=== PATIENT | female | born 1985 | race Caucasian/White ===

== ENCOUNTER 2021-10-12 22:34 | Emergency (ER) | payer OTHER ==
[2021-10-12 23:17] LABS: BASOPHIL 0.4 % (0-2); EOSINOPHIL 1.6 % (0-5); HCT 41.6 % (37.0-47.0); HGB 13.6 g/dl (12.5-16.0); LYMPHOCYTE 19.9 % (15-48); MCH 29.8 pg (25.0-31.0); MCHC 32.7 g/dL (32.0-36.0); MONOCYTE 6.5 % (0-12); MPV 10.4 fL (6.0-9.5); NEUTROPHIL 71.4 % (41-80); NRBC 0; PLT 291 K/uL (150-400); RBC 4.57 M/uL (4.20-5.40); RDW 14.1 % (11.5-14.0); WBC 8.1 K/uL (4.0-10.5)
[2021-10-12 23:37] LABS: ALBUMIN 3.8 g/dL (3.4-5.0); BILIRUBIN - TOTAL 0.8 mg/dL (0.2-1.0); BUN/CREAT RATIO (CALC) 22.5 RATIO; CREATININE 0.71 mg/dL (0.51-0.95); GLOBULIN (CALCULATION) 4.1 g/dL; POTASSIUM 3.6 mmol/L (3.5-5.1); TOTAL PROTEIN 7.9 g/dL (6.4-8.2)
[2021-10-12 23:44] LABS: BILIRUBIN NEGATIVE (NEGATIVE); BLOOD NEGATIVE Ery/uL (NEGATIVE); CLARITY CLEAR (CLEAR); COLOR YELLOW (YELLOW); GLUCOSE (U) NORMAL (NORMAL); LEUKOCYTES NEGATIVE Leu/uL (NEGATIVE); NITRITE NEGATIVE (NEGATIVE); PROTEIN NEGATIVE (NEGATIVE)
[2021-10-13] MEDS ORDERED: PHENERGAN25 M1 PO (02:23)
[2021-10-13] MEDS ORDERED: PERCOCET 5-3251 EACH PO (02:23)
[2021-10-13] MEDS ORDERED: OMEPRAZOLE40 MG PO (02:23)
[2021-10-13] MEDS ORDERED: ONDANSETRON ODT4 MG PO (02:23)
[2021-10-13] MEDS ORDERED: CARAFATE1 GM PO (02:23)
== END 2021-10-13 02:58 | disposition home or self-care (01) ==
LOC: FER 22:34
PROVIDERS: Internal Medicine
DX: I71.2 Thoracic aortic aneurysm, without rupture (principal); R74.01 Elevation of levels of liver transaminase levels; U07.1 COVID-19; I10 Essential (primary) hypertension; Z88.6 Allergy status to analgesic agent
CPT/HCPCS: 36415; 71275; 80053; 81003; 83690; 83735; 84145; 84484; 85025; 93005; C9113; J1170; J2405; J2550; Q9967

== ENCOUNTER → 2021-11-18 | Day surgery (SDC) | payer OTHER ==
[~2021-11-18] VITALS: Ht 157.5 cm; Wt 68.5 kg
[~2021-11-18] MED LIST: ACETAMINOPHEN500 M1 PO; CARAFATE1 GM PO; IRON SUPPLEMENT PO; LABETALOL HCL100 MG PO; OMEPRAZOLE40 MG PO; ONDANSETRON ODT4 MG PO; PERCOCET 5-3251 EACH PO; PHENERGAN25 M1 PO; PRENATAL FORMU1 EACH PO; SYNTHROID100 MCG PO; VITAMIN D350 MCG PO
[2021-11-18 08:42] LABS: HCG (URINE) SCREEN NEGATIVE (NEGATIVE)
== END | disposition home or self-care (01) ==
LOC: FAS 08:07
PROVIDERS: Anesthesiology
DX: K29.50 Unspecified chronic gastritis without bleeding (principal); K31.9 Disease of stomach and duodenum, unspecified; K21.00 Gastro-esophageal reflux disease with esophagitis, without bleeding; M19.90 Unspecified osteoarthritis, unspecified site; I10 Essential (primary) hypertension; Z88.5 Allergy status to narcotic agent
CPT/HCPCS: 84703; J2704; J7120